=== PATIENT | female | born 1995 | race Two or more races ===

== ENCOUNTER → 2020-08-09 | Outpatient (CLI) | payer OTHER ==
--- NOTE | 2020-08-09 15:59 | RAD ---
OB ultrasound greater than 14 weeks 08/09/2020 Clinical History: survey. Technique: A real-time ultrasound examination of the gravid uterus was performed. Multiple images were obtained. Findings: Comparison study is dated 08/07/2020. There is a single living IUP. The fetus is in a cephalic position. cardiac and somatic activity is seen. The maternal cervix is poorly visualized due to the position of the head. The placenta is posterior. No focal abnormality of the placenta is seen. The area of probable contraction seen on the patient's previous ultrasound has resolved. The amniotic fluid volume is within normal limits. Neither maternal ovary is visualized. No adnexal mass is seen. The following measurements were obtained: BPD 6.86cm 27 weeks 4 days HC 25.53 cm 27weeks 5 days AC 20.91 cm 25weeks 3 days FL 4.77 cm 26 weeks 0 days The estimated gestational age by ultrasound is 26 weeks 5 days plus or minus a standard deviation of 14 days. The estimated date of delivery by ultrasound on today's study is 11/10/2020. Since the previous examination has been appropriate interval growth. No abnormality is seen. Specifically the stomach, bladder, kidneys, 3 vessel cord and cord insertion, four-chamber heart, and visualized brain are within normal limits. The spine( excluding the sacrum) is well-visualized and is within normal limits. The face is not well evaluated due to position. The left arm is not visualized due to position. The remaining extremities are well-visualized and are within normal limits. Impression: 1. Single living IUP with an estimated gestational age by ultrasound of 26 weeks5 days +/- a standard deviation of 14 days. Since the previous examination has been appropriate interval growth. 2. . The placental contraction seen on the previous study has resolved. Electronically signed by: Eric Yang MD (08/09/2020 3:56 PM) [id number]
== END ==
LOC: US 10:59
PROVIDERS: ATTEND Obstetrics & Gynecology
DX: O26.842 Uterine size-date discrepancy, second trimester (principal); O09.92 Supervision of high risk pregnancy, unspecified, second trimester; Z3A.26 26 weeks gestation of pregnancy
CPT/HCPCS: 76805

== ENCOUNTER → 2020-11-08 | Outpatient (CLI) | payer OTHER ==
[2020-11-08 16:17] LABS: BASO % 0 % (0-3); EOS # 0.2 x10^3/uL (0.0-0.7); EOS % 2 % (0-3); HEMATOCRIT 41.9 % (36.0-47.0); HEMOGLOBIN 14.1 g/dL (12.0-15.5); LYMPH # 2.6 x10^3/uL (1.0-4.8); LYMPH % 31 % (24-48); MEAN CORPUSCULAR HEMOGLOBIN 29 pg (25-35); MEAN CORPUSCULAR HGB CONC 34 g/dL (31-37); MEAN CORPUSCULAR VOLUME 85 fL (79-100); MONO # 0.5 x10^3/uL (0.0-1.1); MONO % 6 % (0-9); NEUT % 60 % (31-73); PLATELET COUNT 334 x10^3/uL (140-400); RED BLOOD COUNT 4.95 x10^6/uL (3.50-5.40); RED CELL DISTRIBUTION WIDTH 13.2 % (11.5-14.5); WHITE BLOOD COUNT 8.3 x10^3/uL (4.0-11.0)
[2020-11-08 16:32] LABS: ALBUMIN 3.5 g/dL (3.4-5.0); ALBUMIN/GLOBULIN RATIO 0.8 (1.0-1.7); CALCIUM 9.9 mg/dL (8.5-10.1); CREATININE 0.6 mg/dL (0.6-1.0); GFR 119.9; POTASSIUM 3.8 mmol/L (3.5-5.1); TOTAL BILIRUBIN 0.5 mg/dL (0.2-1.0); TOTAL PROTEIN 7.7 g/dL (6.4-8.2)
[2020-11-09 10:09] LABS: THYROXINE 12.2 ug/dL (4.5-12.0)
== END ==
LOC: LAB 15:15
PROVIDERS: ATTEND Psychiatry & Neurology Neurology
DX: D64.9 Anemia, unspecified (principal); R53.1 Weakness
CPT/HCPCS: 36415; 80053; 83540; 84436; 84443; 84480; 85025

== ENCOUNTER → 2020-12-02 | Outpatient (CLI) | payer OTHER ==
[2020-12-02 23:07] LABS: THYROXINE 7.4 ug/dL (4.5-12.0)
== END ==
LOC: LAB 14:32
PROVIDERS: ATTEND Psychiatry & Neurology Neurology
DX: E05.90 Thyrotoxicosis, unspecified without thyrotoxic crisis or storm (principal)
CPT/HCPCS: 36415; 84436; 84443; 84480